=== PATIENT | female | born 1970 | race Asian ===

== ENCOUNTER → 2024-12-20 | Outpatient (CLI) | payer BC ==
[2024-12-20 10:55] VITALS: BP 125/81; PULSE 72; RESP 16; TEMP 97.4
--- NOTE | 2024-12-20 11:39 | P.SLEEP ---
History of Present Illness DATE: 12/20/2024 CONSULTATION/NEW PATIENT EVALUATION HISTORY OF PRESENT ILLNESS/SLEEP-WAKE EVALUATION: 54-year-old lady had been evaluated in the sleep center for possible obstructive sleep apnea hypopnea syndrome. SLEEP SCHEDULE: Usually sleep schedule 10 PM to 6 AM 7 days a week. FALLING ASLEEP: No problems with falling asleep. DURING SLEEP: Patient has loud snoring. Patient wakes up from sleep once with nocturia. No history of hypnogogical hallucinations, sleep paralysis, or cataplexy. DURING THE DAY/WAKE STATE: Patient may feel some sleepiness during the day. [place] sleepiness scale is slightly increased to 10. Patient takes nap at 2 PM. PAST MEDICAL HISTORY: Hypertension, hypothyroidism. PAST SURGICAL HISTORY: Partial hysterectomy, right shoulder replacement. MEDICATIONS: Losartan, Synthroid. SOCIAL HISTORY: Please see below. FAMILY HISTORY: Have been reviewed, please see below. REVIEW OF SYSTEMS: Loud snoring, episodes of sleepiness. No fevers. No double vision. No recent chest pain. No shortness of breath. No abdominal pain. No bleeding episodes. No blood in urine. No seizure episodes. PHYSICAL EXAMINATION: GENERAL: A pleasant patient without any distress. VITAL SIGNS: Have been reviewed, please see below, weight 180 pounds, BMI 28.6. HEENT: PERRCONSUELO, EOMI. Evaluation of oropharynx showed tongue protrudes midline, low position of soft palate Mallampati 34, retrognathia 1 to 2 mm. NECK: Supple. No JVD. Thyroid is not palpable. 13.5 inches in circumference. LUNGS: Clear to percussion and to auscultation. Good air exchange. No wheezing or rhonchi. HEART: S1, S2 regular. No murmurs, gallops or rubs. ABDOMEN: Soft and nontender. Bowel sounds are present. No organomegaly appreciated. EXTREMITIES: No clubbing or cyanosis. SALES ORDER PROCESSOR: Awake, alert, and oriented x3. Cranial nerves 2 to 7 intact. There is no fasciculation or atrophy noted. No focal deficits observed. ASSESSMENT: 1. Loud snoring, low position of soft palate Mallampati 34, retrognathia about 2 mm, sleepiness with [place] Sleepiness Scale 10. Obstructive sleep apnea hypopnea syndrome. 2. Hypertension. 3. Hypothyroidism. 4. Status post right shoulder replacement. 5 status post partial hysterectomy. PLAN: 1. Home sleep apnea test for evaluation of patient's breathing during sleep. 2. Following plan after reading sleep study. 3. Preferable position during sleep on the side. 4. No driving if patient feels any sleepiness. Patient is aware of civil and criminal liability for unsafe driving. 5. Sleep hygiene with regular sleep time for at least 7.5-8 hours. 6. Watching weight. Thank you very much for referring this patient for consultation. Sincerely, Wayne Jean MD, PhD, FAASM. Diplomat of [employer] [employer], Sleep Medicine Board by [employer] [employer] Speculator of [facility] [place] cc: Alisha Rizzo MD Past Medical History Past Medical History: Hypertension, Thyroid Disorder History of Any Multi-Drug Resistant Organisms: None Reported Past Surgical History: Hysterectomy, Orthopedic Surgery Additional Past Surgical History / Comment(s): rt shoulder, foot surgery Past Anesthesia/Blood Transfusion Reactions: No Reported Reaction Past Psychological History: No Psychological Hx Reported Smoking Status: Never smoker Past Drug Use History: None Reported - Past Family History Mother Family Medical History: Coronary Artery Disease (CAD), Hyperlipidemia, Hypertension, Osteoarthritis (OA) Father Family Medical History: Coronary Artery Disease (CAD) Brother(s) Family Medical History: Asthma Medications and Allergies Home Medications Medication Instructions Recorded Confirmed Type Levothyroxine Sodium [Synthroid] 25 mcg PO DAILY 12/20/24 12/20/24 History Losartan [Cozaar] 25 mg PO DAILY 12/20/24 12/20/24 History Physical Exam Vitals: Vital Signs Temp Pulse Resp BP Pulse Ox 12/20/24 10:49 97.4 F L 72 16 125/81 100 Intake and Output 12/19/24 12/20/24 12/20/24 22:59 06:59 14:59 Other: Weight 81.647 kg Sleep Note - Sleep Data ESS Total: 10 - Sleep Note Sleep Note: Temperature: 97.4 F Pulse Rate: 72 Respiratory Rate: 16 Blood Pressure: 125/81 SpO2: 100 Height: 5 ft 6.5 in Weight: 81.647 kg BMI: Neck Circumference: 13.5
== END ==
LOC: 3 N SLEEP 10:31
PROVIDERS: ATTEND Internal Medicine
DX: G47.33 Obstructive sleep apnea (adult) (pediatric) (principal); I10 Essential (primary) hypertension; E78.5 Hyperlipidemia, unspecified; Z90.710 Acquired absence of both cervix and uterus; Z96.611 Presence of right artificial shoulder joint
CPT/HCPCS: 99202

== ENCOUNTER → 2024-12-24 | Outpatient (CLI) | payer BC ==
--- NOTE | 2024-12-26 12:30 | P.PCN ---
Description of Procedure: CLINICAL: A home sleep apnea test has been done for confirmation of possible obstructive sleep apnea-hypopnea syndrome. DESCRIPTION OF PROCEDURE: RESULTS: Recording time was 7 hours 55 minutes. Evaluation time was 7 hours 50 minutes. Evaluation time is sufficient for making conclusion about results of the test. Raw data of sleep recording has been reviewed and is adequate. Respiratory channel showed 46 apneas and 139 hypopneas. Apnea-hypopnea index was 23.6 per hour. Pulse rate in the range between minimum 49, maximum 99, average 62 by computer calculation. Lowest desaturation was 75%. IMPRESSION: 1. Moderate Obstructive Sleep Apnea Hypopnea Syndrome. Please see other impressions from consultation. PLAN: 1. The patient will be started on auto-PAP treatment for correction of respiratory abnormallities during sleep. 2. I will see patient for follow up visit to discuss results of the test, evaluate clinical response on treatment with PAP therapy and make any necessary adjustments related to mask fitting, pressure, and humidification. 3. Watching weight. 4. Sleep hygiene with regular time in bed for at least 8 hours. 5. No driving if feeling any sleepiness. Thank you very much for allowing me to participate in the management of your patient. Sincerely, Wayne Jean MD, PhD, FAASM Diplomat of [place] [employer] Sleep Medicine Board of [place] [employer] Payroll Secretary of [facility] [place] cc: Alisha Rizzo MD
== END ==
LOC: 3 N SLEEP 13:05
PROVIDERS: ATTEND Internal Medicine
DX: G47.33 Obstructive sleep apnea (adult) (pediatric) (principal)